=== PATIENT | male | born 1995 | race Caucasian/White ===

== ENCOUNTER 2018-09-22 21:32 | Emergency (ER) | payer OTHER ==
[~2018-09-22] VITALS: Ht 172.7 cm; Wt 81.7 kg
[2018-09-22 22:25] VITALS: BP 118/73
== END 2018-09-22 22:27 | disposition home or self-care (01) ==
LOC: M.ERS 21:32
DX: S01.312A Laceration without foreign body of left ear, initial encounter (principal); W22.8XXA Striking against or struck by other objects, initial encounter; Y92.89 Other specified places as the place of occurrence of the external cause; Y93.89 Activity, other specified; Y99.8 Other external cause status

== ENCOUNTER 2018-11-16 16:18 | Emergency (ER) | payer OTHER ==
[~2018-11-16] VITALS: Ht 180.3 cm; Wt 81.7 kg
[2018-11-16] MEDS ORDERED: KEFLEX500 M1 PO (16:56)
[2018-11-16 17:25] VITALS: BP 116/70
== END 2018-11-16 17:27 | disposition home or self-care (01) ==
LOC: M.ERS 16:18
DX: S01.111A Laceration without foreign body of right eyelid and periocular area, initial encounter (principal); V89.2XXA Person injured in unspecified motor-vehicle accident, traffic, initial encounter; Y93.89 Activity, other specified; Y92.89 Other specified places as the place of occurrence of the external cause; Y99.8 Other external cause status; F17.200 Nicotine dependence, unspecified, uncomplicated